=== PATIENT | female | born 1995 | race Caucasian/White ===

== ENCOUNTER 2020-09-24 00:07 | Emergency (ER) | payer OTHER, SELFPAY ==
[2020-09-24 00:09] VITALS: BP 132/82; PULSE 115; RESP 16; TEMP 36.4; O2SAT 100; BMI 37.8
--- NOTE | 2020-09-24 00:18 | ED.VIS.GEN ---
History of Present Illness Chief Complaint: Informant: Patient Onset: Days Context: Gradual Onset Timing: Continuous Current Severity: Moderate Maximum Severity: Moderate Narrative: Patient is an otherwise healthy 25-year-old female who presents to the emergency department concern for . She states for the past 10 days, she has had some nausea and some abdominal cramping. She states she is had diminished appetite. She still did not drink. She denies any focal abdominal pain. She states that she took a urine test at home and it was positive. She states she discussed this with her sister who is also and was told to come to the emergency department. She denies any vaginal bleeding. She denies any urinary symptoms. She has never been before. Prior similar symptoms: No Recent Illness/Hospitalization: No Past Medical History - Allergies and Home Meds Allergies/Adverse Reactions: Allergies sulfamethoxazole [From Bactrim] Allergy (Verified 09/24/20 00:08) Hives trimethoprim [From Bactrim] Allergy (Verified 09/24/20 00:08) Hives Primary Care Physician: Venita Bang MD [STAFF PHYSICIAN] - Prior records reviewed: Yes Past Medical History: None Surgical History: noncontributory Smoking Status: Never smoker Review of Systems General: Denies: Chills, Fever, Sweats Eyes: Denies: Visual changes - bilaterally, Diplopia ENT: Denies: Rhinorrhea, Sore throat Cardiovascular: Denies: Chest pain, Palpitations Respiratory: Denies: Dyspnea, Cough, Dyspnea on exertion Gastrointestinal: Reports: Nausea. Denies: Abdominal pain, Vomiting, Diarrhea, Melena, Hematochezia Genitourinary: Denies: Dysuria, Hematuria, Frequency Musculoskeletal: Denies: Back pain, Extremity Pain Skin: Denies: Rash, Wounds Neurological: Denies: Headache, Weakness, Numbness Physical Exam Vital Signs/Narrative: Vital Signs Temp Pulse Resp BP Pulse Ox 09/24/20 00:09 97.6 F L 115 H 16 132/82 H 100 Inital Vital Signs reviewed: Yes General: Well nourished, Well developed, No Acute Distress Head: Normocephalic, Atraumatic Eyes: Perrl, EOMI ENT: Moist mucous membranes, No rhinorrhea Neck: Supple, Nontender Cardiovascular: Regular rate, Regular rhythm, No murmurs Respiratory: No distress, CTA bilaterally, Chest nontender Abdomen: Soft, Nontender, Nondistended, Normal bowel sounds Back: Nontender, Normal Inspection Extremities: Nontender, No edema Skin: Normal color, No rash Neurological: Alert, Oriented x3, Cranial nerves II-XII grossly intact, Normal Strength, Normal Sensation Psychological: Normal affect, Normal Mood Diagnostic/Tx/Re-eval - Medical Decision Making The patient presents requesting test. Her abdomen is soft and nontender. Urine was obtained. There is no evidence of infection. Patient is . She is been battling nausea, so I will give her Zofran. She will be started on vitamins. I have no suspicion for ectopic. She was counseled on concerning symptoms and reasons to return. She will be given outpatient FOREST LOGISTICS MANAGER follow-up. Impression ED Disposition - Plan for ED Patient: Instructions: ED , New Dx Prescriptions: Vits [Prenatabs FA] 1 tablet PO DAILY #90 tab Prescription Printed Ondansetron [Zofran Odt] 4 mg PO Q8H PRN PRN #10 tablet PRN Reason: Nausea Prescription Printed Referrals: Venita Bang MD [STAFF PHYSICIAN] -
[2020-09-24 00:21] LABS: Bacteria 0 SEEN /hpf (None Seen); Color, Urine Yellow (Yellow); Glucose, Dipstick Normal (Normal); Ketone-Dipstick 15 mg/dl (Negative); Leukocyte Esterase-Dipstick 25 /ul (Negative); Mucous, Urine 0 SEEN /hpf (<or=2+); Nitrite-Dipstick Negative (Negative); Occult Blood-Urine Negative /ul (Negative); Protein-Dipstick Negative (Negative); Red Blood Cells-Urine 0 SEEN /hpf (0-5); Urine Bilirubin Dipstick Negative (Negative); Urine Clarity Clear (Clear); Urine Urobilinogen Normal (Normal)
[2020-09-24 00:22] LABS: Internal QC Validated? YES +Cl - CLEAR BKGD
[2020-09-24 00:23] LABS: Pregnancy, Urine Positive Negative; Squamous Epithelial Cells - UA 0-5 SEEN /hpf (5-10); White Blood Cells 0-5 SEEN /hpf (0-5)
[2020-09-24] MEDS: Ondansetron ODT 4 MG Tablet PO (00:31)
[2020-09-24 00:46] VITALS: BP 132/82; PULSE 115; RESP 16; O2SAT 98
== END 2020-09-24 00:46 | disposition home or self-care (01) ==
LOC: ED 00:39
PROVIDERS: Emergency Provider Emergency Medicine; PCP Family Medicine
DX: Z32.01 Encounter for pregnancy test, result positive (principal)
CPT/HCPCS: 81001; 81025; 99283

== ENCOUNTER 2020-11-13 23:40 | Emergency (ER) | payer OTHER, SELFPAY ==
[2020-11-13 23:41] VITALS: BP 126/70; PULSE 110; RESP 18; TEMP 36.2; O2SAT 96; BMI 34.5
[2020-11-14] MEDS: DiphenhydrAMINE 50 MG/ML Syringe 12.5 MG IV (00:17)
[2020-11-14] MEDS: Metoclopramide 10 MG/2 ML Vial IV (00:18)
[2020-11-14 00:24] LABS: Absolute Lymphocyte Count 1.16 X10^3/uL (0.83-4.51); Absolute Neutrophil Count 10.3 X10^3/uL (2.0-7.7); Basophil# 0.02 X10^3/uL; Basophil% 0.2 % (0-1); Eosinophil# 0.02 X10^3/uL; Eosinophils% 0.2 % (0-5); Hematocrit 39.3 % (37-47); Hemoglobin 13.1 g/dL (12.0-15.0); Lymphocyte # 1.16 X10^3/ul (0.83-4.51); Lymphocyte % 9.7 % (19-41); Mean Corp Hgb Conc 33.3 g/dL (32-36); Mean Corpuscular Hgb 27.7 pg (27.0-32.0); Mean Corpuscular Volume 83.1 fL (81-99); Mean Platelet Vol. 11.3 fl (6.2-12.0); Monocyte# 0.44 X10^3/uL; Monocyte% 3.7 % (0-10); NRBC Flagged by Analyzer 0 % (0-5); Neutrophil # 10.26 X10^3/uL (2.7-7.7); Neutrophil % 85.9 % (47-70); Platelet Count 245 K/mm3 (150-450); RBC Distribution Width CV 12.8 % (11.6-14.6); RBC Distribution Width SD 38.4 fl (35.1-43.9); Red Blood Count 4.73 M/mm3 (4.2-5.4); White Blood Count 11.9 K/mm3 (4.4-11.0)
[2020-11-14 00:36] LABS: Anion Gap 7 (5-15); BUN 7 mg/dL (7-18); BUN/Creat Ratio 8.9 RATIO (10-20); Calcium,Total 9.7 mg/dL (8.5-10.1); Chloride 105 mmol/L (98-107); Creatinine, Serum 0.78 mg/dL (0.55-1.02); EST Glomerular Filtration Rate 97 mL/min (>60); Est Glom Filt Rate - Afr Amer 117 mL/min (>60); Estimated Creatinine Clearance 80.57 ml/min; Glucose 93 mg/dL (74-106); Potassium 3.8 mmol/L (3.5-5.1); Sodium Level 136 mmol/L (136-145)
[2020-11-14 01:04] LABS: Bacteria 0 SEEN /hpf (None Seen); Mucous, Urine 0 SEEN /hpf (<or=2+)
[2020-11-14 01:05] LABS: Color, Urine Amber (Yellow); Glucose, Dipstick Normal (Normal); Leukocyte Esterase-Dipstick 500 /ul (Negative); Nitrite-Dipstick Negative (Negative); Occult Blood-Urine 250 /ul (Negative); Protein-Dipstick 100 mg/dl (Negative); Specific Gravity, Urine 1.025 (1.002-1.030); Urine Bilirubin Dipstick 1 mg/dL (Negative); Urine Clarity Sl. Cloudy (Clear); Urine Urobilinogen 1 mg/dl (Normal)
[2020-11-14 01:06] LABS: Ketone-Dipstick 150 mg/dl (Negative)
[2020-11-14 01:09] LABS: Red Blood Cells-Urine 25-50 SEEN /hpf (0-5); Squamous Epithelial Cells - UA 0-5 SEEN /hpf (5-10); White Blood Cells 25-50 SEEN /hpf (0-5)
--- NOTE | 2020-11-14 01:38 | EDS_ITS ---
HPI History of Present Illness Chief Complaint: Nausea/Vomiting Informant: patient and spouse/S.O. Onset/Context/Timing Onset: Weeks Context: Gradual Onset Current Severity: Severe Maximum Severity: Severe Narrative Narrative: Patient present secondary to nausea and vomiting. She is currently 12 weeks . She states she is had problems with vomiting throughout her . She had been on Zofran and her OB switched her to Phenergan just a few days ago. In spite of this she continues to have intractable vomiting tonight. Patient denies cramping. She denies bleeding or spotting. This is her first . PFSH PFSH no medical history Home Medications ondansetron 4 mg PO Q8H PRN PRN #10 tablet 09/24/20 [Rx Last Taken Unknown] [id number] 1 tablet PO DAILY #90 tab 09/24/20 [Rx Last Taken Unknown] metoclopramide HCl [Reglan] 10 mg PO Q6H PRN #20 tab 11/14/20 [Rx Last Taken Unknown] Allergy/AdvReac Type Severity Reaction Status Date / Time sulfamethoxazole Allergy Hives Verified 11/13/20 23:43 [From Bactrim] trimethoprim [From Bactrim] Allergy Hives Verified 11/13/20 23:43 Social History Smoking Status: Never smoker ROS ROS ED Constitutional Constitutional ED: Denies chills or fever(s) Eyes Eyes: Denies change in vision ENT ENT ED: Denies sore throat Cardiovascular Cardiovascular: Denies chest pain Respiratory/Chest Respiratory/Chest: Denies cough or dyspnea Gastrointestinal Gastrointestinal: Reports nausea and vomiting; Denies abdominal pain or diarrhea Genitourinary Genitourinary ED: Denies dysuria Musculoskeletal Musculoskeletal: Denies back pain Integumentary Denies rash Neurologic Neurologic: Denies headache(s) or weakness Psychiatric Psychiatric: Denies anxiety or depression Endocrine Endocrinology: Denies polydipsia or polyuria Allergic/Immunologic Allergic/Immunologic ED: Denies urticaria EXAM Physical Exam Const Vital Signs: 11/13/20 23:41 11/14/20 01:53 Temperature 97.1 F L Temperature Source Oral Pulse Rate 110 H 88 Respiratory Rate 18 16 Blood Pressure 126/70 H 106/74 Blood Pressure Mean 88 Pulse Ox 96 Oxygen Delivery Method Room Air Positive well nourished and well developed General Appearance ED: well developed HEENT Reports normocephalic, head/scalp atraumatic and dry mucous membranes Mouth ED: Yes dry mucous membranes Mouth: dry mucous membranes Eyes PERRL and EOMs intact bilaterally Neck supple Chest Wall inspection of chest normal and palpation of chest normal Resp normal respiratory effort and clear to auscultation bilaterally Cardio regular rate and regular rhythm GI normal to inspection, nondistended, normoactive bowel sounds and non-tender Palpation: soft Back/Spine no CVA tenderness Extremity normal to inspection Neuro oriented x3 and no sensory deficits noted Sensorium / Orientation: alert Motor Exam: strength 5/5 throughout Psych mental status grossly normal Skin no rashes or lesions noted MDM MDM MDM Narrative Medical decision making narrative: Patient is given IV fluids along with Reglan and Benadryl. Lab Data Attestation: I reviewed the patient's lab results. Labs: Laboratory Results - last 24 hr 11/14/20 11/14/20 11/14/20 00:10 00:10 00:50 WBC 11.9 H RBC 4.73 Hgb 13.1 Hct 39.3 MCV 83.1 MCH 27.7 MCHC 33.3 RDW Std Deviation 38.4 RDW Coeff of Felipe 12.8 Plt Count 245 MPV 11.3 Immature Gran % (Auto) 0.300 Neut % (Auto) 85.9 H Lymph % (Auto) 9.7 L [place] % (Auto) 3.7 Eos % (Auto) 0.2 Baso % (Auto) 0.2 Absolute Neuts (auto) 10.3 H Absolute Lymphs (auto) 1.16 Nucleated RBC % 0 Sodium 136 Potassium 3.8 Chloride 105 Carbon Dioxide 24.0 Anion Gap 7 BUN 7 Creatinine 0.78 Estim Creat Clear Calc 80.57 Est GFR (MDRD) Af Amer 117 Est GFR (MDRD) Non-Af 97 BUN/Creatinine Ratio 8.9 L Glucose 93 Calcium 9.7 Urine Color [place] Urine Clarity Sl. Cloudy Urine pH 6.0 Ur Specific [place] 1.025 Urine Protein 100 H Urine Glucose (UA) Normal Urine Ketones 150 A* Urine Occult Blood 250 H Urine Nitrite Negative Urine Bilirubin 1 H Urine Urobilinogen 1 H Ur Leukocyte Esterase 500 H Urine RBC 25-50 SEEN Urine WBC 25-50 SEEN Ur Squamous Epith Cells 0-5 SEEN Urine Bacteria 0 SEEN Urine Mucus 0 SEEN Treatment and Re-Evaluation Comments:: On repeat examination patient is significantly improved. She does have large ketones noted in her urine. She has been rehydrated with IV fluids. She will be given a prescription for Reglan and will contact her CARDIAC REHABILITATION SPECIALIST tomorrow for follow-up. Discharge Plan Triage Chief Complaint: Nausea/Vomiting ED Provider: Mary Nielsen Dx/Rx/DC Orders Clinical Impression: Vomiting Instructions: ED Vomiting (Adult) Prescriptions: New metoclopramide HCl [Reglan] 10 mg tablet 10 mg PO Q6H PRN (Reason: nausea and vomiting) Qty: 20 RF: 0 No Action ondansetron 4 MG tablet 4 mg PO Q8H PRN PRN (Reason: Nausea) Qty: 10 RF: 0 vit,[id number] 1 TABLET tablet 1 tablet PO DAILY Qty: 90 RF: 0 Primary Care Provider: Smith Corbin Referrals: Smith Corbin MD [Primary Care Provider] - Activity Restrictions/Additional Instructions: As discussed, follow-up with your CARDIAC REHABILITATION SPECIALIST later today. Disposition Disposition: Home, self care Discharge Date/Time: 11/14/20 01:54
[2020-11-14 01:53] VITALS: BP 106/74; PULSE 88; RESP 16
== END 2020-11-14 01:54 | disposition home or self-care (01) ==
PROVIDERS: Emergency Provider Emergency Medicine; PCP Family Medicine
DX: O21.9 Vomiting of pregnancy, unspecified (principal); Z3A.12 12 weeks gestation of pregnancy
CPT/HCPCS: 80048; 81001; 85025; 96361; 96374; 96375; 99283; J7030; A4216

== ENCOUNTER 2020-11-16 18:53 | Emergency (ER) | payer OTHER, SELFPAY ==
[2020-11-16 18:55] VITALS: BP 146/100; PULSE 106; RESP 17; TEMP 36.1; O2SAT 100; BMI 35.1
--- NOTE | 2020-11-16 19:39 | EX.ED.DYSGE1 ---
HPI History of Present Illness Chief Complaint: Other, Pain/Inj Informant: patient and family Narrative Narrative: Patient presents with neck pain. Started while she was at work about 20 minutes ago. The pain radiates into her jaw. She denies any specific injury. She is currently 12 weeks gestation. She denies any abdominal pain or vaginal bleeding or any low symptoms. She denies a headache. No blurry vision or double vision. She took nothing for this pain. Pain is worse with movement. She denies any dental pain. PFSH PFSH Home Medications ondansetron 4 mg PO Q8H PRN PRN #10 tablet 09/24/20 [Rx Last Taken Unknown] [id number] 1 tablet PO DAILY #90 tab 09/24/20 [Rx Last Taken Unknown] metoclopramide HCl [Reglan] 10 mg PO Q6H PRN #20 tab 11/14/20 [Rx Last Taken Unknown] doxylamine succinate [Sleep Aid (doxylamine)] 25 mg PO QHS PRN 11/16/20 [History Last Taken Unknown] lidocaine [Lidoderm] 1 patch TOPICAL DAILY #1 ea 11/16/20 [Rx Last Taken Unknown] magnesium oxide 400 mg PO DAILY 11/16/20 [History Last Taken Unknown] pyridoxine (vitamin B6) [Vitamin B-6] 25 mg PO DAILY 11/16/20 [History Last Taken Unknown] Allergy/AdvReac Type Severity Reaction Status Date / Time sulfamethoxazole Allergy Hives Verified 11/16/20 18:54 [From Bactrim] trimethoprim [From Bactrim] Allergy Hives Verified 11/16/20 18:54 Social History Smoking Status: Never smoker ROS ROS ED Constitutional Constitutional ED: Denies chills or fever(s) Eyes Eyes: Denies blurry vision, change in vision, diplopia or loss of vision ENT ENT ED: Reports other; Denies ear pain, rhinorrhea or sore throat Cardiovascular Cardiovascular: Denies chest pain, palpitations or racing heartbeat Respiratory/Chest Respiratory/Chest: Denies cough, dyspnea, dyspnea on exertion or sputum Gastrointestinal Gastrointestinal: Denies abdominal pain, diarrhea, nausea or vomiting Genitourinary Genitourinary ED: Denies dysuria, hematuria or urinary frequency Musculoskeletal Musculoskeletal: Reports neck pain Integumentary Denies abscess or rash Neurologic Neurologic: Denies headache(s) or weakness Psychiatric Psychiatric: Denies anxiety or depression Endocrine Endocrinology: Denies polydipsia or polyuria Hematologic/Lymphatic Hematologic/Lymphatic: Denies easy bleeding or easy bruising Allergic/Immunologic Allergic/Immunologic ED: Denies urticaria EXAM Physical Exam Const Vital Signs: 11/16/20 18:55 11/16/20 19:33 Temperature 96.9 F L Temperature Source Temporal Pulse Rate 106 H Respiratory Rate 17 Respiratory Effort Normal Non-Labored Respiratory Pattern Normal Blood Pressure 146/100 H Blood Pressure Mean 115 Pulse Ox 100 Oxygen Delivery Method Room Air Positive well nourished and well developed General Appearance ED: well developed HEENT Reports moist mucous membranes Negative for trauma or tenderness Eyes PERRL and EOMs intact bilaterally Neck supple General: Negative for tenderness Resp normal respiratory effort and clear to auscultation bilaterally Cardio regular rate, regular rhythm and no murmurs GI non-tender Palpation: soft Back/Spine no CVA tenderness Cervical Spine: cervical spine tenderness Thoracic Spine / Upper Back: paraspinal muscle tenderness; Negative for thoracic spinal tenderness Lumbar Spine / Lower Back: Negative for lumbar spinal tenderness Neuro oriented x3 Sensorium / Orientation: alert Sensory Exam: No sensory level loss detected Motor Exam: strength 5/5 throughout Psych mental status grossly normal MDM MDM MDM Narrative Medical decision making narrative: The patient appears to have a cervical strain. She has no bony tenderness. Do not feel x-rays are needed. Her oral exam is unremarkable. Patient will be educated to use Tylenol at home. I will give her Lidoderm patches to place in these areas. These are class B. She will follow-up with her THREAT MONITORING ANALYST Discharge Plan Triage Chief Complaint: Other, Pain/Inj ED Provider: Javi Matthews Dx/Rx/DC Orders Clinical Impression: Cervical muscle strain Instructions: ED Neck Sprain or Strain Prescriptions: New lidocaine [Lidoderm] 5 % adhesive patch,medicated 1 patch topical DAILY Qty: 1 RF: 0 No Action ondansetron 4 MG tablet 4 mg PO Q8H PRN PRN (Reason: Nausea) Qty: 10 RF: 0 [id number] 1 TABLET tablet 1 tablet PO DAILY Qty: 90 RF: 0 metoclopramide HCl [Reglan] 10 mg tablet 10 mg PO Q6H PRN (Reason: nausea and vomiting) Qty: 20 RF: 0 pyridoxine (vitamin B6) [Vitamin B-6] 25 mg tablet 25 mg PO DAILY RF: 0 magnesium oxide 400 mg (241.3 mg magnesium) tablet 400 mg PO DAILY RF: 0 Sleep Aid (doxylamine) 25 mg tablet 25 mg PO QHS PRN (Reason: Sleep) RF: 0 Primary Care Provider: Smith Corbin Referrals: Smith Corbin MD [Primary Care Provider] - Disposition Disposition: Home, self care
[2020-11-16] MEDS: Acetaminophen 325 MG Tablet 650 MG PO (19:48)
== END 2020-11-16 20:13 | disposition home or self-care (01) ==
PROVIDERS: Emergency Provider Emergency Medicine; PCP Family Medicine
DX: O99.891 Other specified diseases and conditions complicating pregnancy (principal); S16.1XXA Strain of muscle, fascia and tendon at neck level, initial encounter; Z3A.12 12 weeks gestation of pregnancy; X58.XXXA Exposure to other specified factors, initial encounter; Y93.89 Activity, other specified; Y92.89 Other specified places as the place of occurrence of the external cause; Y99.8 Other external cause status
CPT/HCPCS: 99283

== ENCOUNTER 2021-06-02 22:53 | Emergency (ER) | payer MEDICAID, SELFPAY ==
[2021-06-02 22:56] VITALS: BP 147/87; PULSE 103; RESP 20; TEMP 37.4; O2SAT 97; BMI 34.5
--- NOTE | 2021-06-02 23:01 | US_ITS ---
STUDY: ULTRASOUND TRANSVAGINAL CLINICAL: Female, 25 years old. post bleeding TECHNIQUE: Axial and sagittal ultrasound images of the pelvis were obtained transvaginally. COMPARISON: None. FINDINGS: The uterus measures 14.0 x 10.8 x 9.4 cm. Endometrial stripe measures 4.0 cm in thickness and contains heterogeneous material. No definite vascularity is seen in the endometrial stripe. The ovaries could not be identified. No adnexal mass is noted on either side. There is no free fluid in the pelvis. US/Transvaginal Non- IMPRESSION: Markedly thickened endometrial stripe containing heterogeneous material, likely blood clots. However, the possibility of retained products of conception cannot be excluded. Correlation with serial beta hCG levels and short-term follow-up ultrasound as clinically indicated are recommended. Electronically Signed: Michael Hernandez MD at 2:00 EST Tel , Service support ,
[2021-06-02] MEDS: 0.9% Normal Saline 1,000 ML 999 ML IV (23:09)
[2021-06-02] MEDS: Labetalol (Prefilled) 20 MG/4 ML IV (23:09)
[2021-06-02 23:23] LABS: International Normalized Ratio 1.1; Prothrombin Time (Protime)PT. 13.5 SECONDS (11.7-14.9)
[2021-06-02 23:24] LABS: Partial Thromboplast Time 28.7 Seconds (24.1-36.2)
[2021-06-02 23:29] LABS: Mucous, Urine 0 SEEN /hpf (<or=2+); Squamous Epithelial Cells - UA 0 SEEN /hpf (5-10)
--- NOTE | 2021-06-02 23:30 | EDS_ITS ---
HPI HPI - Female History of Present Illness Chief Complaint: Vag Bleeding Narrative Narrative: Patient is a G1, P1 female who is post vaginal delivery approximately 8 days. She states she delivered at 39 weeks and 5 days by vaginal delivery. She states that she stayed 40 hours in the hospital and was discharged home. She states starting yesterday she had some vaginal bleeding and went to an outside ER. There she was evaluated and informed that overall work-up was normal and that she should follow-up with PRODUCE MANAGER. Patient states that she was with family today and had passage of more clots and secondary to this presents to the ER for evaluation. She states that she had gestational diabetes with her but otherwise had no medical issues other than nausea and vomiting and states her known chronic medical problems such as hypertension hyperlipidemia or diabetes. She also denies any history of bleeding disorder or blood thinner use PFSH PFSH Home Medications acetaminophen [Tylenol] 600 mg PO Q8H 06/02/21 [History Last Taken Unknown] docusate sodium [Colace] 100 mg PO DAILY 06/02/21 [History Last Taken Unknown] amoxicillin 500 mg PO TID 7 Days #21 cap 06/03/21 [Rx Last Taken Unknown] Allergy/AdvReac Type Severity Reaction Status Date / Time sulfamethoxazole Allergy Hives Verified 06/02/21 23:03 [From Bactrim] trimethoprim [From Bactrim] Allergy Hives Verified 06/02/21 23:03 Surgical History (Updated 06/02/21 @ 23:03 by Sarah Daniels) Hx of tonsillectomy Social History Smoking Status: Never smoker ROS [facility] ED Constitutional Constitutional ED: Reports fever(s) and subjective; Denies chills ENT ENT ED: Denies sore throat Cardiovascular Cardiovascular: Denies chest pain Respiratory/Chest Respiratory/Chest: Denies cough or dyspnea Gastrointestinal Gastrointestinal: Denies abdominal pain, diarrhea, nausea or vomiting Genitourinary Genitourinary ED: Reports other Details: Positive vaginal bleeding ; Denies dysuria Musculoskeletal Musculoskeletal: Denies myalgias Integumentary Denies rash Neurologic Neurologic: Reports headache(s) Hematologic/Lymphatic Hematologic/Lymphatic: Denies easy bleeding or easy bruising EXAM Physical Exam Const Vital Signs: 06/02/21 22:56 06/02/21 23:54 06/03/21 00:27 Temperature 99.3 F H Temperature Source Temporal Pulse Rate 103 H 871 H Respiratory Rate 20 H 18 Blood Pressure 147/87 H 121/74 H 133/91 H Blood Pressure Mean 107 89 105 Pulse Ox 97 100 Oxygen Delivery Method Room Air Room Air 06/03/21 01:01 Temperature Temperature Source Pulse Rate Respiratory Rate Blood Pressure 130/82 H Blood Pressure Mean 98 Pulse Ox Oxygen Delivery Method Positive well nourished and well developed General Appearance ED: well developed HEENT Reports moist mucous membranes Eyes PERRL and EOMs intact bilaterally General Eye ED: Negative for pale conjunctiva Neck supple Neck Narrative: No meningeal sign Resp normal respiratory effort and clear to auscultation bilaterally Cardio regular rate and regular rhythm Rate: other Other Details: Plus 2 out of 4 bilaterally are equal and symmetric GI normal to inspection, nondistended, normoactive bowel sounds, soft to palpation, non-tender, non-distended and no masses GI Narrative: No voluntary guarding or rigidity no pulsatile mass Auscultation: normoactive bowel sounds Palpation: soft Narrative: External genitalia is normal there is no obvious secondary skin changes to suggest infection. There is no abscess formation or crepitance palpated. Patient has trace amount of blood from the vaginal os consistent with her report of bleeding. Back/Spine no CVA tenderness Extremity normal to inspection Extremity Narrative: No asymmetric edema no pitting edema negative Homans' sign bilaterally Neuro oriented x3 and CN's II-XII intact bilaterally Sensorium / Orientation: alert Psych mental status grossly normal Skin no rashes or lesions noted MDM MDM MDM Narrative Medical decision making narrative: Patient presented to the ER technically afebrile blood pressure was approaching concern for preeclampsia. With her low- grade temperature report of vaginal bleeding and hypertension I did elect to perform an ultrasound as well as basic labs. White blood cell count is normal and her hemoglobin hematocrit are technically low but well above the transfusion value. Patient's lactic acid is also normal she does not have thrombocytopenia and her LDH is normal. Therefore at this time I do not feel she has progressed to preeclampsia. The transvaginal ultrasound did show debris within the uterus consistent with blood. As she is afebrile without white count or lactic acidosis or left shift I do not feel there is need for inpatient place ment. Her urine does show changes consistent with infection but she does not have acute kidney injury either. Therefore at this time I do feel it is still appropriate for her to follow-up with her PRODUCE MANAGER who she states she will do so early this week. I will place her on amoxicillin secondary to the UTI but otherwise patient is safe for discharge and can follow-up on an outpatient basis Lab Data Attestation: I reviewed the patient's lab results. Labs: Laboratory Results - last 24 hr 06/02/21 06/02/21 06/02/21 23:07 23:07 23:07 WBC 9.4 RBC 4.02 L Hgb 10.4 L Hct 32.7 L MCV 81.3 MCH 25.9 L MCHC 31.8 L RDW Std Deviation 39.2 RDW Coeff of Felipe 13.3 Plt Count 324 MPV 10.4 Immature Gran % (Auto) 2.300 H Neut % (Auto) 71.2 H Lymph % (Auto) 18.7 L [place] % (Auto) 6.0 Eos % (Auto) 1.3 Baso % (Auto) 0.5 Absolute Neuts (auto) 6.7 Absolute Lymphs (auto) 1.75 Nucleated RBC % 0 PT 13.5 INR 1.1 APTT 28.7 Sodium 140 Potassium 3.4 L Chloride 107 Carbon Dioxide 24.0 Anion Gap 9 BUN 15 Creatinine 0.86 Estim Creat Clear Calc 73.08 Est GFR (MDRD) Af Amer 104 Est GFR (MDRD) Non-Af 86 BUN/Creatinine Ratio 17.4 Glucose 98 Lactic Acid Uric Acid 7.0 H Calcium 8.7 Total Bilirubin 0.30 Direct Bilirubin 0.13 AST 19 ALT 29 Alkaline Phosphatase 118 H Lactate Dehydrogenase 203 Total Protein 7.4 Albumin 2.8 L Globulin 4.6 H Urine Color Urine Clarity Urine pH Ur Specific [place] Urine Protein Urine Glucose (UA) Urine Ketones Urine Occult Blood Urine Nitrite Urine Bilirubin Urine Urobilinogen Ur Leukocyte Esterase Urine RBC Urine WBC Ur Squamous Epith Cells Ur Renal Epithelial Cell Urine Bacteria Urine Mucus 06/02/21 06/02/21 23:07 23:22 WBC RBC Hgb Hct MCV MCH MCHC RDW Std Deviation RDW Coeff of Felipe Plt Count MPV Immature Gran % (Auto) Neut % (Auto) Lymph % (Auto) [place] % (Auto) Eos % (Auto) Baso % (Auto) Absolute Neuts (auto) Absolute Lymphs (auto) Nucleated RBC % PT INR APTT Sodium Potassium Chloride Carbon Dioxide Anion Gap BUN Creatinine Estim Creat Clear Calc Est GFR (MDRD) Af Amer Est GFR (MDRD) Non-Af BUN/Creatinine Ratio Glucose Lactic Acid 0.8 Uric Acid Calcium Total Bilirubin Direct Bilirubin AST ALT Alkaline Phosphatase Lactate Dehydrogenase Total Protein Albumin Globulin Urine Color [place] Urine Clarity Cloudy Urine pH 5.0 Ur Specific [place] 1.020 Urine Protein 100 H Urine Glucose (UA) Normal Urine Ketones 5 H Urine Occult Blood 250 H Urine Nitrite Positive H Urine Bilirubin Negative Urine Urobilinogen Normal Ur Leukocyte Esterase 500 H Urine RBC > 100 SEEN Urine WBC 50-100 SEEN Ur Squamous Epith Cells 0 SEEN Ur Renal Epithelial Cell 0-5 SEEN Urine Bacteria 2+ Urine Mucus 0 SEEN Radiography Diagnostic Testing: Clinical Impression(s) from Imaging Studies Transvaginal US 06/02/21 23:01 IMPRESSION: Markedly thickened endometrial stripe containing heterogeneous material, likely blood clots. However, the possibility of retained products of conception cannot be excluded. Correlation with serial beta hCG levels and short-term follow-up ultrasound as clinically indicated are recommended. Electronically Signed: Michael Hernandez MD at 2:00 EST Tel , Service support , Discharge Plan Triage Chief Complaint: Vag Bleeding ED Provider: Steve Welch Dx/Rx/DC Orders Clinical Impression: bleeding, UTI (urinary tract infection) Instructions: Urinary Tract Infections in Women, Hemorrhage Prescriptions: New amoxicillin 500 mg capsule 500 mg PO TID 7 Days Qty: 21 RF: 0 No Action docusate sodium [Colace] 100 mg Capsule 100 mg PO DAILY RF: 0 acetaminophen [Tylenol] 325 mg Capsule 600 mg PO Q8H RF: 0 Primary Care Provider: Smith Corbin Referrals: Smith Corbin MD [Primary Care Provider] - Disposition Disposition: Home, Self Care
[2021-06-02 23:34] LABS: Color, Urine Amber (Yellow); Glucose, Dipstick Normal (Normal); Ketone-Dipstick 5 mg/dl (Negative); Leukocyte Esterase-Dipstick 500 /ul (Negative); Nitrite-Dipstick Positive (Negative); Occult Blood-Urine 250 /ul (Negative); Protein-Dipstick 100 mg/dl (Negative); Urine Bilirubin Dipstick Negative (Negative); Urine Clarity Cloudy (Clear); Urine Urobilinogen Normal (Normal)
[2021-06-02 23:36] LABS: Absolute Lymphocyte Count 1.75 X10^3/uL (0.83-4.51); Absolute Neutrophil Count 6.7 X10^3/uL (2.0-7.7); Basophil# 0.05 X10^3/uL; Basophil% 0.5 % (0-1); Eosinophil# 0.12 X10^3/uL; Eosinophils% 1.3 % (0-5); Hematocrit 32.7 % (37-47); Hemoglobin 10.4 g/dL (12.0-15.0); Lactic Acid 0.8 mmol/L (0.4-1.9); Lymphocyte # 1.75 X10^3/ul (0.83-4.51); Lymphocyte % 18.7 % (19-41); Mean Corp Hgb Conc 31.8 g/dL (32-36); Mean Corpuscular Hgb 25.9 pg (27.0-32.0); Mean Corpuscular Volume 81.3 fL (81-99); Mean Platelet Vol. 10.4 fl (6.2-12.0); Monocyte# 0.56 X10^3/uL; NRBC Flagged by Analyzer 0 % (0-5); Neutrophil # 6.67 X10^3/uL (2.7-7.7); Neutrophil % 71.2 % (47-70); Platelet Count 324 K/mm3 (150-450); RBC Distribution Width CV 13.3 % (11.6-14.6); RBC Distribution Width SD 39.2 fl (35.1-43.9); Red Blood Count 4.02 M/mm3 (4.2-5.4); White Blood Count 9.4 K/mm3 (4.4-11.0)
[2021-06-02 23:38] LABS: AST(SGOT) 19 U/L (15-37); Alanine Aminotransfer ALT/SGPT 29 U/L (13-56); Albumin, Serum 2.8 g/dL (3.2-5.0); Alkaline Phosphatase 118 U/L (45-117); Anion Gap 9 (5-15); BUN 15 mg/dL (7-18); BUN/Creat Ratio 17.4 RATIO (10-20); Bilirubin, Direct 0.13 mg/dL (0.00-0.30); Calcium,Total 8.7 mg/dL (8.5-10.1); Chloride 107 mmol/L (98-107); Creatinine, Serum 0.86 mg/dL (0.55-1.02); EST Glomerular Filtration Rate 86 mL/min (>60); Est Glom Filt Rate - Afr Amer 104 mL/min (>60); Estimated Creatinine Clearance 73.08 ml/min; Globulin 4.6 g/dL (2.2-4.2); Glucose 98 mg/dL (74-106); LDH 203 U/L (84-246); Potassium 3.4 mmol/L (3.5-5.1); Protein, Total 7.4 g/dL (6.4-8.2); Sodium Level 140 mmol/L (136-145)
[2021-06-02 23:41] LABS: Red Blood Cells-Urine > 100 SEEN /hpf (0-5); Renal Epithelial Cells 0-5 SEEN /hpf (0-5); White Blood Cells 50-100 SEEN /hpf (0-5)
[2021-06-02 23:42] LABS: Bacteria 2+ /hpf (None Seen)
[2021-06-02 23:54] VITALS: BP 121/74
[2021-06-03] MEDS: Ceftriaxone 1 GM/50 ML BAG IV (00:23)
[2021-06-03 00:27] VITALS: BP 133/91; PULSE 871; RESP 18; O2SAT 100
[2021-06-03 01:01] VITALS: BP 130/82
[2021-06-03 02:31] VITALS: BP 138/60; PULSE 90; RESP 18
== END 2021-06-03 02:31 | disposition home or self-care (01) ==
PROVIDERS: Emergency Provider Emergency Medicine; PCP Family Medicine
DX: O72.2 Delayed and secondary postpartum hemorrhage (principal); O86.20 Urinary tract infection following delivery, unspecified; N39.0 Urinary tract infection, site not specified
CPT/HCPCS: 76830; 80048; 80076; 81001; 83605; 83615; 84550; 85025; 85610; 85730; 87077; 87086; 87088; 87186; 96361; 96365; 96375; 99284; J7030; A4216